=== PATIENT | male | born 1945 | race Caucasian/White ===

== ENCOUNTER 2023-01-09 08:17 | Day surgery (SDC) | payer OTHER ==
[~2023-01-09] VITALS: Ht 152.4 cm; Wt 60.8 kg
[~2023-01-09 08:17] MED LIST: CETI-80 PO; CHOL200019; FURO-149 PO; LOSA-417 PO; POTA10TA PO; SPIR100T PO; SPIR50TA PO
[2023-01-09] MEDS ORDERED: MEPERIDINE 100 MG INJ. 100 MG/ML VIAL ONE (08:22)
[2023-01-09] MEDS ORDERED: MIDAZOLAM HCL 5 MG/5 ML VIAL ONE (08:22)
[2023-01-09 13:51] VITALS: BP_SYST 120
== END 2023-01-09 11:30 | disposition home or self-care (01) ==
LOC: SDS 08:17
PROVIDERS: ATTEND Internal Medicine Gastroenterology
DX: I85.00 Esophageal varices without bleeding (principal); K76.6 Portal hypertension; K31.89 Other diseases of stomach and duodenum; K29.70 Gastritis, unspecified, without bleeding; Z79.899 Other long term (current) drug therapy
CPT/HCPCS: 43244; 99152; G0378; J2250; J2175